=== PATIENT | female | born 1955 | race Caucasian/White ===

== ENCOUNTER 2018-05-10 07:54 | Outpatient (CLI) | payer OTHER | END 2018-05-10 08:02 | disposition home or self-care (01) | LOC: RX STUDY 07:54 | DX: R13.14 Dysphagia, pharyngoesophageal phase (principal) ==

== ENCOUNTER 2018-09-17 08:11 | Outpatient (CLI) | payer OTHER | END 2018-09-17 08:14 | disposition home or self-care (01) | LOC: SONOGRAMA 08:11 | DX: E04.1 Nontoxic single thyroid nodule (principal) ==

== ENCOUNTER 2019-02-12 07:53 | Outpatient (CLI) | payer OTHER | END 2019-02-12 07:56 | disposition home or self-care (01) | LOC: RX STUDY 07:53 | DX: R13.13 Dysphagia, pharyngeal phase (principal) ==